=== PATIENT | male | born 1985 | race Caucasian/White ===

== ENCOUNTER 2021-10-17 14:36 | Outpatient (CLI) | payer OTHER, SELFPAY ==
[2021-10-17 21:21] LABS: Chloride* 100 mmol/L (96-114); Sodium* 137 mmol/L (135-149)
[2021-10-17 21:23] LABS: Cholesterol* 239 mg/dL (90-199)
[2021-10-17 21:24] LABS: Blood Urea Nitrogen* 14 mg/dL (5-24); Carbon Dioxide* 29 mmol/L (20-32); Creatinine* 0.9 mg/dL (0.5-1.5); Estimated Glomerular Filt Rate 112 ml/min; Glucose* 94 mg/dL (60-115); Triglycerides* 267 mg/dL (40-149)
[2021-10-17 21:25] LABS: Calcium* 9.3 mg/dL (8.4-10.6); HDL Cholesterol* 37 mg/dL (>=40); LDL Cholesterol Calculated 149 mg/dL (<100)
== END 2021-10-17 14:37 | disposition home or self-care (01) ==
PROVIDERS: Visit Provider Family Medicine
DX: Z00.00 Encounter for general adult medical examination without abnormal findings (principal); R03.0 Elevated blood-pressure reading, without diagnosis of hypertension; R53.83 Other fatigue; Z13.6 Encounter for screening for cardiovascular disorders
CPT/HCPCS: 80048; 80061; 84443

== ENCOUNTER 2024-04-06 14:50 | Outpatient (CLI) | payer BC, SELFPAY | END 2024-04-06 14:51 | disposition home or self-care (01) | PROVIDERS: PCP Family Medicine; Visit Provider Emergency Medicine | DX: E78.5 Hyperlipidemia, unspecified (principal); I10 Essential (primary) hypertension; R00.2 Palpitations | CPT/HCPCS: 80048; 80061; 84443 ==

== ENCOUNTER 2024-06-06 12:34 | Outpatient (CLI) | payer BC, SELFPAY | END 2024-06-06 12:35 | disposition home or self-care (01) | LOC: LKVREF 12:34 | PROVIDERS: PCP Family Medicine; Visit Provider Family Medicine | DX: E78.5 Hyperlipidemia, unspecified (principal); E78.1 Pure hyperglyceridemia | CPT/HCPCS: 80076 ==

== ENCOUNTER 2024-08-30 12:39 | Outpatient (CLI) | payer OTHER, SELFPAY | END 2024-08-30 12:40 | disposition home or self-care (01) | LOC: LKVREF 12:40 | PROVIDERS: PCP Family Medicine | DX: R20.2 Paresthesia of skin (principal); E78.5 Hyperlipidemia, unspecified; E78.1 Pure hyperglyceridemia; R00.2 Palpitations; Z13.21 Encounter for screening for nutritional disorder | CPT/HCPCS: 80061; 80076; 82607 ==